=== PATIENT | male | born 1960 | race Caucasian/White ===

== ENCOUNTER → 2019-09-17 | Outpatient (CLI) | payer OTHER ==
--- NOTE | 2019-09-17 11:28 | XR ---
EXAMINATION TYPE: XR chest 2V DATE OF EXAM: 09/17/2019 COMPARISON: NONE HISTORY: Prostate cancer TECHNIQUE: Frontal and lateral views of the chest are obtained. FINDINGS: There is no focal air space opacity, pleural effusion, or pneumothorax seen. The cardiac silhouette size is within normal limits. The osseous structures are intact, there is a spinal curva ture. IMPRESSION: No acute cardiopulmonary process.
--- NOTE | 2019-09-17 13:19 | CT ---
EXAMINATION TYPE: CT abdomen pelvis w con DATE OF EXAM: 09/17/2019 COMPARISON: None HISTORY: prostate cancer CT DLP: 936 mGycm Automated exposure control for dose reduction was used. TECHNIQUE: Helical acquisition of images was performed from the lung bases through the pelvis. CONTRAST: Performed with Oral Contrast and with IV Contrast, patient injected with 100 mL of Isovue 300. FINDINGS: LUNG BASES: No significant abnormality is appreciated. Partially visualized coronary calcifications a re seen, a marker of coronary artery disease. LIVER/GB: No suspicious hepatic lesion is identified. No intrahepatic biliary ductal dilatation. No c holelithiasis. PANCREAS: No significant abnormality is seen. No ductal dilatation. SPLEEN: No splenomegaly. ADRENALS: No nodules or thickening. KIDNEYS: Kidneys enhance and excrete symmetrically without hydronephrosis. FREE AIR: No free air is visualized. REPRODUCTIVE ORGANS: Prostate gland is upper limits of normal in size in transverse dimension measuri ng 4.8 cm. ADENOPATHY: No greater than 1 cm short axis lymph node in the abdomen or pelvis. OSSEOUS STRUCTURES: Moderate multilevel degenerative change of the spine. No suspicious osseous lesi on seen. Mild S-shaped scoliosis of the visualized thoracolumbar spine and moderate degenerative de paz ge of the hips. BOWEL: Numerous sigmoid diverticula are seen without pericolonic fat stranding. No dilated large or small bowel identified. IMPRESSION: 1. No evidence of suspicious adenopathy of the abdomen or pelvis or suspicious osseous lesion. No CT evidence of metastasis. 2. Sigmoid diverticulosis without evidence of acute diverticulitis.
--- NOTE | 2019-09-17 14:50 | NM ---
EXAMINATION TYPE: NM bone scan whole body DATE OF EXAM: 09/17/2019 COMPARISON: Chest x-ray 09/17/[address] 09/17/2019 HISTORY: Prostate cancer Delayed whole-body scanning was performed following the injection of 24 mCi Tc 99m MDP. Images acqui red 3 hours post injection. FINDINGS: There is a bandlike area of increased radio pharmaceutical uptake along the right approximately ninth rib. Soft tissue uptake is normal. There is uptake along the maxilla and mandible, possibly nasophar ynx which may be due to periodontal disease, sinus disease. Uptake along the sternoclavicular joints, shoulders, knees is likely degenerative. There is a slight spinal curvature. IMPRESSION: Findings are suspicious at the posterior right approximate ninth rib for metastatic disease.
== END | disposition home or self-care (01) ==
LOC: RADNMMAIN 10:04
PROVIDERS: ATTEND Urology
DX: K57.30 Diverticulosis of large intestine without perforation or abscess without bleeding (principal); C61 Malignant neoplasm of prostate; Z88.0 Allergy status to penicillin
CPT/HCPCS: 71046; 74177; 78306; A9503; Q9967

== ENCOUNTER → 2019-09-21 | Outpatient (CLI) | payer OTHER ==
--- NOTE | 2019-09-21 15:24 | XR ---
Right RIBS HISTORY: Prostate cancer 4 views of the right ribs correlated to bone scan and CT 09/17/2019 There is no corresponding bone abnormalities identified at the eighth or ninth rib on the right to co rrelate with the patient's bone scan finding, no abnormality noted on CT. No pneumothorax or pleural effusion. IMPRESSION: No plain film finding to correlate with bone scan finding. MRI may be of benefit.
== END | disposition home or self-care (01) ==
LOC: RADXRMAIN 14:59
PROVIDERS: ATTEND Urology
DX: C61 Malignant neoplasm of prostate (principal); Z88.0 Allergy status to penicillin